=== PATIENT | female | born 1960 | race Caucasian/White ===

== ENCOUNTER 2016-05-20 16:52 | Observation (INO) ==
[2016-05-20] MEDS ORDERED: Aspirin 81 MG TAB.CHEW PO ONE (17:06)
--- NOTE | 2016-05-20 17:09 | Emergency Department Note ---
Disposition Clinical Impression: Chest pain Qualifiers: Chest pain type: unspecified Qualified Code(s): R07.9 - Chest pain, unspecified Disposition: Admitted As Inpatient Condition: Good Forms: ED Satisfaction Letter Time of Disposition: 18:14 Chest Pain HPI - General Chief Complaint: ED Chest Pain Stated Complaint: Chest pain Time Seen by Provider: 05/20/16 17:02 Source: patient Mode of arrival: ambulatory Limitations: no limitations Vital Signs Reviewed: Yes Nursing Notes Reviewed: Yes - History of Present Illness HPI Narrative: 55-year-old developed chest pain while at work she describes it across her chest heaviness and tightness into her jaw into her arm. The patient does have a history of hypertension hypercholesterolemia. Patient has a strong family history dad had an PA at 42. Patient is a nonsmoker. Patient is not a diabetic. Pt complaint: chest pain Onset (ago): Just [employer] Duration: intermittent Onset: other (While at work nonexertional job) Pain Location: left chest Severity: moderate Severity scale (1-10): 5 Quality: tightness, aching Pain Radiation: LUE, jaw/teeth Improves with: rest Worsens with: exertion Associated symptoms: Reports: diaphoresis - Related Data Allergies Allergy/AdvReac Type Severity Reaction Status Date / Time No Known Allergies Allergy Verified 05/20/16 17:09 Constitutional: Denies: fever, chills, weakness, weight change Eyes: Denies: eye pain, eye discharge, vision change ENT ED: Denies: ear pain, throat pain, dental pain, hearing loss, epistaxis, congestion, dysphagia Cardiovascular: Reports: chest pain. Denies: palpitations, dyspnea on exertion , edema, syncope Respiratory: Denies: cough, dyspnea, wheezes, hemoptysis, stridor Gastrointestinal: Denies: abdominal pain, nausea, vomiting, diarrhea, constipation, hematemesis, melena, hematochezia Genitourinary: Denies: dysuria, frequency, hematuria, discharge Musculoskeletal: Denies: back pain, neck pain, arthralgia, myalgia Integumentary: Denies: rash, abrasion, lesions Neurological: Denies: headache, weakness, numbness, paresthesias, confusion, abnormal gait, vertigo Psychiatric: Denies: anxiety, depression, suicidal thoughts, homicidal thoughts , auditory hallucinations, visual hallucinations Endocrine: Denies: fatigue Hematological/Lymphatic: Denies: easy bleeding, easy bruising Allergic/Immunologic: Denies: facial swelling, urticaria Chest Pain PMH - Past Medical History Medical history: Reports: hyperlipidemia, hypertension Psychiatric history: Reports: no psych history - Social History Smoking Status: Former smoker Alcohol use: Reports: rarely Drug use: Reports: none Physical Exam - General Limitations: no limitations General appearance: alert - Head Head exam: atraumatic, normocephalic, normal inspection - Eye Eye exam: Present: normal appearance, PERRL, EOMI - ENT ENT exam: normal exam, normal oropharynx, mucous membranes moist - Neck Neck exam: Present: normal inspection, full ROM, trachea midline - Chest Chest inspection: Present: normal inspection, symmetric chest wall rise - Respiratory Respiratory exam: Present: normal lung sounds bilaterally - Cardiovascular Cardiovascular exam: Present: regular rate, normal rhythm, normal heart sounds - Abdominal Exam Abdominal exam: Present: soft, Non-Tender. Absent: tenderness, distention, guarding, rebound, rigidity - Extremities Exam Extremities exam: Present: normal inspection, full ROM. Absent: tenderness, pedal edema - Expanded Lower Extremity Exam Neurovascular/Tendon exam: Present: normal capillary refill Gait: observed and normal - Back Exam Back exam: Present: normal inspection, full ROM. Absent: tenderness - Neurological Exam Neurological exam: Present: alert, oriented X3 - Psychiatric Psychiatric exam: Present: normal affect, normal mood - Skin Skin exam: Present: warm, dry, intact, normal color Course - Reevaluation(s) Reevaluation #1: Patient's workup here in emergency department is negative with respect to her troponin. EKG does show T-wave inversions in V1 and V2 and V3. Patient will be admitted for further evaluation. Time: 18:05 - Consultations Consultation #1: Discussed with Dr. Caldera, admit. Time: 18:14 Vital Signs Temperature 97.9 F 05/20/16 16:56 Pulse Rate 111 05/20/16 16:56 Respiratory Rate 22 05/20/16 16:56 Blood Pressure 191/99 05/20/16 16:56 O2 Sat by Pulse Oximetry 92 L 05/20/16 16:56 Temperature 97.9 F 05/20/16 16:56 Pulse Rate 86 05/20/16 18:11 Respiratory Rate 16 05/20/16 18:11 Blood Pressure 132/69 05/20/16 18:11 O2 Sat by Pulse Oximetry 98 02/04/17 18:11 Oxygen Delivery Oxygen Delivery Room Air Chest Pain - Lab Data Result diagrams: 05/20/16 17:32 05/20/16 17:32 Lab Results 05/20/16 05/20/16 05/20/16 Range/Units 17:32 17:32 17:32 WBC 5.4 (4.3-11.1) K/mcL RBC 3.99 (3.82-4.97) M/mcL Hgb 12.7 (11.5-15.4) g/dL Hct 37.8 (35.3-44.9) % MCV 94.7 (83.0-100.0) fL MCH 31.8 (28.0-33.3) pg MCHC 33.6 (31.6-35.5) g/dL RDW 12.8 (11.5-14.5) % Plt Count 203 (140-400) K/mcL MPV 11.0 (9.4-12.4) fL Immature Gran % 0.2 (0-4) % Seg Neutrophils % 65.0 % Lymphocytes % 24.5 % Monocytes % 8.1 % Eosinophils % 1.8 % Basophils % 0.4 % Neutrophils # 3.5 (1.6-8.9) K/mcL Lymphocytes # 1.3 (0.6-4.6) K/mcL Monocytes # 0.4 (0.0-1.3) K/mcL Eosinophils # 0.1 (0.0-0.6) K/mcL Basophils # 0.0 (0.0-0.2) K/mcL PT 11.4 (9.4-12.1) Seconds INR 1.1 APTT 29.8 (26.0-36.0) Seconds Sodium (136-145) mEq/L Potassium (3.5-4.5) mEq/L Chloride (98-109) mEq/L Carbon Dioxide (19-29) mEq/L BUN (7-20) mg/dL Creatinine (0.57-1.11) mg/dL Est GFR ( Amer) (> 60) Est GFR (Non-Af Amer) (> 60) BUN/Creatinine Ratio (6-26) Glucose (70-99) mg/dL Calculated Osmolality (280-300) Calcium (8.6-10.8) mg/dL Troponin I (0-0.03) ng/mL B-Natriuretic Peptide 20 (0-100) pg/mL 05/20/16 05/20/16 Range/Units 17:32 17:32 WBC (4.3-11.1) K/mcL RBC (3.82-4.97) M/mcL Hgb (11.5-15.4) g/dL Hct (35.3-44.9) % MCV (83.0-100.0) fL MCH (28.0-33.3) pg MCHC (31.6-35.5) g/dL RDW (11.5-14.5) % Plt Count (140-400) K/mcL MPV (9.4-12.4) fL Immature Gran % (0-4) % Seg Neutrophils % % Lymphocytes % % Monocytes % % Eosinophils % % Basophils % % Neutrophils # (1.6-8.9) K/mcL Lymphocytes # (0.6-4.6) K/mcL Monocytes # (0.0-1.3) K/mcL Eosinophils # (0.0-0.6) K/mcL Basophils # (0.0-0.2) K/mcL PT (9.4-12.1) Seconds INR APTT (26.0-36.0) Seconds Sodium 139 (136-145) mEq/L Potassium 3.6 (3.5-4.5) mEq/L Chloride 102 (98-109) mEq/L Carbon Dioxide 26 (19-29) mEq/L BUN 19 (7-20) mg/dL Creatinine 1.10 (0.57-1.11) mg/dL Est GFR ( Amer) > 60 (> 60) Est GFR (Non-Af Amer) 51 L (> 60) BUN/Creatinine Ratio 17 (6-26) Glucose 87 (70-99) mg/dL Calculated Osmolality 290 (280-300) Calcium 9.4 (8.6-10.8) mg/dL Troponin I 0.00 (0-0.03) ng/mL B-Natriuretic Peptide (0-100) pg/mL - EKG Data EKG attestation: Yes I reviewed and interpreted this EKG. EKG shows normal: sinus rhythm Rate: normal Rhythm: NSR T wave inversions noted in: v1, v2, v3 When compared to previous EKG there are: previous EKG unavailable Interpretation: other (T-wave inversion no old EKG.) Heart Score - Score History: Moderately Suspicious EKG: Non Specific repolarisation Disturbance Age: 45-65 Risk Factors: Equal/Greater than 3 risk factor or history of atherosclerotic disease Troponin: Less than normal limit HEART Score Total: 5
[2016-05-20 17:45] LABS: Basophils % 0.4 %; Eosinophils # 0.1 K/mcL (0.0-0.6); Eosinophils % 1.8 %; Hematocrit 37.8 % (35.3-44.9); Hemoglobin 12.7 g/dL (11.5-15.4); Immature Granulocytes % 0.2 % (0-4); Lymphocytes # 1.3 K/mcL (0.6-4.6); Lymphocytes % 24.5 %; Mean Corpuscular HGB Conc 33.6 g/dL (31.6-35.5); Mean Corpuscular Hemoglobin 31.8 pg (28.0-33.3); Mean Corpuscular Volume 94.7 fL (83.0-100.0); Monocytes # 0.4 K/mcL (0.0-1.3); Monocytes % 8.1 %; Neutrophils # 3.5 K/mcL (1.6-8.9); Platelet Count 203 K/mcL (140-400); Red Blood Count 3.99 M/mcL (3.82-4.97); Red Cell Distribution Width 12.8 % (11.5-14.5)
[2016-05-20 17:49] LABS: INR 1.1; Prothrombin Time 11.4 Seconds (9.4-12.1)
[2016-05-20 17:52] LABS: Activated Partial Thrombo Time 29.8 Seconds (26.0-36.0)
[2016-05-20 17:57] LABS: BUN/Creatinine Ratio 17 (6-26); Blood Urea Nitrogen 19 mg/dL (7-20); Calcium 9.4 mg/dL (8.6-10.8); Carbon Dioxide 26 mEq/L (19-29); Chloride 102 mEq/L (98-109); Glucose 87 mg/dL (70-99); Osmolality,Calculated 290 (280-300); Potassium 3.6 mEq/L (3.5-4.5); Sodium 139 mEq/L (136-145); eGFR For African Americans > 60 (> 60); eGFR For Non-African Americans 51 (> 60)
[2016-05-20] MEDS ORDERED: Naloxone 0.4 MG/ML INJ IVP PRN (18:57)
[2016-05-20] MEDS ORDERED: Acetaminophen 325 MG TABLET PO PRN (18:57)
[2016-05-20] MEDS ORDERED: Ondansetron 4 MG/2 ML VIAL IVP PRN (18:57)
[2016-05-20] MEDS ORDERED: ATORVASTATIN 20 MG PO SCH (19:00)
[2016-05-20] MEDS ORDERED: Nitroglycerin 0.4 MG TAB.SUBL SL PRN (19:00)
--- NOTE | 2016-05-20 19:10 | Internal Med History&Physical ---
Date of Encounter: 05/20/16 Time of Encounter: 18:30 Assessment and Plan (1) Chest pain Current visit: Yes Status: Acute -Given clinical presentation of the chest pain along with strong family history , will admit to rule out ACS -Cardiology consulted (Dr. You) who will see the patient in the morning and determine if the patient needs a stress test vs C -NPO after midnight for cardiac testing in the morning -continue to monitor serial TNI and EKG -ASA, Statin -Nitroglycerin prn chest pain, currently chest pain free -monitor O2 saturation -O2 supplementation as needed Qualifiers: Chest pain type: precordial pain Qualified Code(s): R07.2 - Precordial pain (2) Hypertension Current visit: Yes Status: Chronic BP within acceptable range continue home medications Qualifiers: Hypertension type: essential hypertension Qualified Code(s): I10 - Essential (primary) hypertension (3) Hyperlipidemia Current visit: Yes Status: Chronic -follow up lipid panel -continue lipitor (increased lipitor to 80mg PO qHS), adjust dosing prior to discharge Qualifiers: Hyperlipidemia type: unspecified Qualified Code(s): E78.5 - Hyperlipidemia , unspecified (4) DVT prophylaxis Current visit: Yes Status: Acute Heparin SQ Internal Medicine - H&P: HPI Chief complaint: chest pain Admitted From: Home Plans for Post Hospital Care: Home History of present illness: Ms. Lee is a 55 year old female with past medical history of hypertension, hyperlipidemia who presents today here for evaluation of chest pain. Patient states she woke up this morning with left-sided chest pain radiating to her left arm and neck. She describes the pain as pressure-like, initially started with mid sternum radiating to left chest wall neck and left arm. She reports of a strong family history of cardiac disease including her father having his first GA in his 40s. Upon arrival to the ER patient's chest pain was completely resolved. She received aspirin 324 mg in the ER. At this time she is resting comfortably in bed, denies any chest pain, dizziness, lightheadedness , palpitations, shortness of breath, abdominal pain, nausea, vomiting, fever, or chills. She is also noted to have Twave inversions on her EKG in V1, V2, V3, however no prior EKG is available for comparison. Social Hx: Former smoker FMH: Mother: CHF, Father: CAD, Multiple GA-starting at the age 42, Code status: Full Code Past Med Surg Social Fam HX - Past Medical History Medical history: hyperlipidemia, hypertension Psychiatric history: no psych history - Social History Smoking Status: Former smoker Smokeless Tobacco Status: No Alcohol use: rarely Drug use: none Internal Medicine - H&P: Meds Atorvastatin 20 mg PO DAILY 05/20/16 [History] CloNIDine HCl [Clonidine HCl] 0.5 tab PO HS 05/20/16 [History] Losartan/Hydrochlorothiazide mg PO DAILY 05/20/16 [History] PriLOSEC 20 mg PO DAILY 05/20/16 [History] Valacyclovir 500 mg PO DAILY 05/20/16 [History] Allergies No Known Allergies Allergy (Verified 05/20/16 17:09) All Systems PM: A 10-system review of systems was performed and is negative for pertinent findings except as documented above in the HPI. - Constitutional Constitutional: as per HPI - Constitutional Vitals: Temp Pulse Resp BP Pulse Ox 97.9 F 86 16 132/69 98 05/20/16 16:56 05/20/16 18:11 05/20/16 18:31 05/20/16 18:31 05/20/16 18:11 General appearance: Present: A&O X 3, pleasant, no acute distress, answers questions appropriately - Head Head exam: Present: atraumatic, normocephalic - Eye Eye exam: Present: normal appearance, conjuntiva pink, sclera anicteric - Respiratory Respiratory exam: Present: CTAB. Absent: respiratory distress, wheezes - Cardiovascular Cardiovascular exam: Present: RRR, +S1, +S2 - GI/Abdominal GI/Abdominal exam: Present: normal bowel sounds, soft. Absent: distended, tenderness - Extremities Exam Extremities exam: Present: warm, radial pulses palpable and symetrical. Absent : calf tenderness, pedal edema, tenderness - Neurological Exam Neurological exam: Present: alert, oriented X3, no focal deficits - Psychiatric Psychiatric exam: Present: normal affect, normal mood Internal Med - H&P Results - Labs CBC & Chem 7: 05/20/16 17:32 05/20/16 17:32
[2016-05-20] MEDS ORDERED: valACYclovir 500 MG TABLET PO SCH (21:00)
[2016-05-20] MEDS ORDERED: cloNIDine HCl 0.1 MG TABLET PO SCH ×2 (21:00)
[2016-05-20] MEDS ORDERED: Losartan/HCTZ 50-12.5 TABLET PO SCH (21:00)
[2016-05-20] MEDS: *HR* Heparin 5,000 UNIT/ML VIAL SQ SCH (21:29)
[2016-05-21 00:35] LABS: Basophils % 0.6 %; Eosinophils # 0.2 K/mcL (0.0-0.6); Eosinophils % 3.9 %; Hematocrit 35.4 % (35.3-44.9); Immature Granulocytes % 0.2 % (0-4); Lymphocytes # 1.6 K/mcL (0.6-4.6); Lymphocytes % 35.3 %; Mean Corpuscular HGB Conc 33.9 g/dL (31.6-35.5); Mean Corpuscular Hemoglobin 32.3 pg (28.0-33.3); Mean Corpuscular Volume 95.2 fL (83.0-100.0); Mean Platelet Volume 10.8 fL (9.4-12.4); Monocytes # 0.4 K/mcL (0.0-1.3); Monocytes % 9.5 %; Neutrophils # 2.4 K/mcL (1.6-8.9); Platelet Count 197 K/mcL (140-400); Red Blood Count 3.72 M/mcL (3.82-4.97); Red Cell Distribution Width 12.9 % (11.5-14.5); Segmented Neutrophils % 50.5 %
[2016-05-21 00:52] LABS: BUN/Creatinine Ratio 17 (6-26); Blood Urea Nitrogen 18 mg/dL (7-20); Calcium 8.8 mg/dL (8.6-10.8); Carbon Dioxide 25 mEq/L (19-29); Chloride 103 mEq/L (98-109); Chol/HDL Ratio 2.1 (0-4.9); Cholesterol 126 mg/dL (< 200); Glucose 120 mg/dL (70-99); HDL Cholesterol 59 mg/dL (40-59); LDL Cholesterol,Calculated 52 mg/dL (0-99); Magnesium 2.2 mg/dL (1.6-2.6); Osmolality,Calculated 289 (280-300); Phosphorous 3.6 mg/dL (2.3-4.7); Potassium 3.5 mEq/L (3.5-4.5); Sodium 138 mEq/L (136-145); Triglycerides 73 mg/dL (< 150); eGFR For African Americans > 60 (> 60); eGFR For Non-African Americans 52 (> 60)
[2016-05-21] MEDS: *HR* Heparin 5,000 UNIT/ML VIAL SQ SCH (06:27)
[2016-05-21] MEDS ORDERED: valACYclovir 500 MG TABLET PO SCH (09:00)
--- NOTE | 2016-05-21 10:06 | Cardiology Consult Note ---
Date of Encounter: 05/21/16 Time of Encounter: 09:30 Assessment and Plan Discussion w patient/family: The assessment and plan as outlined above was discussed with the patient and/or family members who expressed understanding and agreement. All questions were answered. Thank you for involving us in the care of your patient. Please call with any questions. Chest appears to atypical EKG reviewed by me shows T wave inversion in V1 V2 , no previous to compare to Cardiac enzymes were neg plan; Stress test today if negative no further eval necessary check lipids Thanks! History of Present Illness Chief complaint: Chest pain History of present illness: Ms. Lee is a 55 year old female with no past cardiac history , but a history of HTN who comes in with CP left sided, ? radiating to left arm, a/w with some diaphresis , was sitting when it happened . Pt is presently CP free, no associated sob, palpitations Past Med Surg Social Fam HX - Past Medical History Medical history: hyperlipidemia, hypertension Psychiatric history: no psych history - Social History Smoking Status: Former smoker Smokeless Tobacco Status: No Alcohol use: rarely Drug use: none - Family History Mother Living Status: Hx Family Cardiac Disorders: Yes (CHF) Father Hx Family Cardiac Disorders: Yes (VT IN 40'S) Medications and Allergies Atorvastatin Calcium [Lipitor] 20 mg PO DAILY 05/20/16 [History] CloNIDine HCl [Clonidine HCl] 0.15 tab PO HS 05/20/16 [History] Losartan/Hydrochlorothiazide [Hyzaar 100-25 Tablet] 1 each PO DAILY 05/20/16 [ History] Omeprazole [PriLOSEC] 20 mg PO BID 05/20/16 [History] Valacyclovir [Valtrex] 500 mg PO DAILY 05/20/16 [History] Allergies No Known Allergies Allergy (Verified 05/20/16 17:09) All Systems Review: A 10-system review of systems was performed and is negative for pertinent findings except as documented above in the HPI. Physical Examination Vital Signs, Last 4 Hours Temp Pulse Resp BP Pulse Ox 05/21/16 06:57 97.8 F 57 14 101/61 95 General: Conversant HEENT: Atraumatic Neck: No JVD Results 05/21/16 00:12 05/21/16 00:12 Lab Results 05/21/16 05/21/16 05/21/16 00:12 00:12 00:12 WBC 4.7 Hgb 12.0 Hct 35.4 Plt Count 197 Sodium 138 Potassium 3.5 Chloride 103 Carbon Dioxide 25 BUN 18 Creatinine 1.08 Glucose 120 H Calcium 8.8 Magnesium 2.2 Troponin I 0.01 05/21/16 06:13 WBC Hgb Hct Plt Count Sodium Potassium Chloride Carbon Dioxide BUN Creatinine Glucose Calcium Magnesium Troponin I 0.00 Consult Discharge Plan - Plan Referrals: Hannah José TRACK MOVING MACHINE OPERATOR [Primary Care Provider] -
[2016-05-21 11:18] VITALS: BP 120/80
--- NOTE | 2016-05-21 11:41 | Nuclear Medicine Stress Report ---
Exercise Nuclear Stress Name: Julita Lee Date of Study: 05/21/2016 Date: 1960 Ht: 64.0 in Medical Record#: [id number] Age: 55 Wt: 140.0 lb Gender: Female Order #: [id number] Location: [facility] Room: [facility] Supervising Provider: Luis Carlos Zhong CNP Reading Physician: Joe Jeffrey DO, FACC, COOKIE, ARNOLD Ordering Physician: Luis Carlos Zhong CNP Primary Care Physician: Hannah José CNP Stress Technologist: Rosalinda Chadwick, WAITER/WAITRESS [employer]GE, CCT, CPFT Byproduct Engineer: Brodie Hall Indications: Chest pain Impression: Exercise ECG is negative for ischemia. The exercise capacity was excellent (12.8 METs). No chest pain reported. Gated EF = 77%. Perfusion imaging was negative for ischemia or infarct. History: Hypertension Hypercholesteremia Stress Test Summary: Stress Test Type: Treadmill Protocol: Dennis Baseline Information: Initial Heart Rate: 74 Blood Pressure: 112/62 Stress Information: Stress Time: 10 min 00 sec Test Terminated Due to (primary): Fatigue Maximum Blood Pressure: 142/70 Maximum Heart Rate: 169 Percent Maximum Heart Rate Achieved: 103 Double Product: [id number] METS Reached: 12.8 Symptoms: Fatigue Nuclear Summary: SPECT myocardial perfusion imaging using Tc99m Sestamibi given intravenously was performed at rest and following cardiac stress testing. The resting images were obtained following initial dose of 9.1 mCi. Following stress an additional dose of 29.5 mCi was given at peak exercise or 30 seconds post regadenoson infusion. Medication Given: Time Medication Dose Units Route Findings: Stress Note * Resting ECG demonstrated normal sinus rhythm, incomplete RBBB. * No baseline arrhythmias were noted. * Exercise ECG is negative for ischemia. * No arrhythmias were noted during stress. * The exercise capacity was excellent. * Patient had no chest pain during stress. * Normal hemodynamic responses to exercise. Study Quality * Study quality is good. Gated EF % * Gated EF = 77%. Left Ventricle * The left ventricle is not dilated. LVEDV = 69 mL. NORMALS * Normal wall motion. * Normal segmental perfusion in rest. * Normal segmental perfusion in stress. TID * No evidence of transient ischemic dilatation. TID ratio = 1.00. Lung Uptake * There is no evidence of increase lung uptake. Updated by Joe Jeffrey DO, TAVARES, COOKIE, ARNOLD on 05/21/2016 11:35:27 AM electronically signed on 05/21/2016 11:38:16 AM with status of Final
--- NOTE | 2016-05-21 11:47 | Internal Med Progress Note ---
Date of Encounter: 05/21/16 Time of Encounter: 11:45 - Assessment and plan (1) Chest pain Current Visit: Yes Status: Acute Assessment and plan: Chest pain and evaluation. Will undergo a stress test today. We will reevaluate afterwards. If negative, possible discharge home in the evening. Qualifiers: Chest pain type: precordial pain Qualified Code(s): R07.2 - Precordial pain (2) DVT prophylaxis Current Visit: Yes Status: Acute - Time Spent With Patient 25 - 35 minutes - Subjective Interval history: Patient seen and examined. She denies chest pain. She will undergo a stress test today. We will reevaluate afterwards. - Constitutional Vitals: Temp Pulse Resp BP Pulse Ox 98.2 F 90 14 120/80 96 05/21/16 11:16 05/21/16 11:16 05/21/16 11:16 05/21/16 11:16 05/21/16 11:16 General appearance: Present: A&O X 3, pleasant, no acute distress, answers questions appropriately - Head Head exam: Present: atraumatic, normocephalic - Eye Eye exam: Present: PERRL, conjuntiva pink, sclera anicteric Pupils: Present: PERRL - Neck Neck exam general surgery: Present: supple, trachea midline. Absent: lymphadenopathy - Respiratory Respiratory exam: Present: CTAB. Absent: accessory muscle use, rales, rhonchi, wheezes - Cardiovascular Cardiovascular exam: Present: RRR, +S1, +S2. Absent: diastolic murmur, gallop, rubs, systolic murmur - GI/Abdominal GI/Abdominal exam: Present: normal bowel sounds, soft, no peritoneal signs. Absent: distended, tenderness - Extremities Exam Extremities exam: Present: warm, radial pulses palpable and symetrical. Absent : calf tenderness, cyanotic, pedal edema - Neurological Exam Neurological exam: Present: CN II-XII intact, oriented X3, no focal deficits. Absent: pronater drift, facial droop, speech deficit - Skin Skin exam: Present: dry, intact Internal Medicine: Result - Labs CBC & Chem 7: 05/21/16 00:12 05/21/16 00:12 Labs: Short CBC 05/21/16 Range/Units 00:12 WBC 4.7 (4.3-11.1) K/mcL Hgb 12.0 (11.5-15.4) g/dL Hct 35.4 (35.3-44.9) % Plt Count 197 (140-400) K/mcL Neutrophils # 2.4 (1.6-8.9) K/mcL BMP 05/21/16 00:12 Sodium 138 Potassium 3.5 Chloride 103 Carbon Dioxide 25 BUN 18 Creatinine 1.08 Glucose 120 H Calcium 8.8 Cardiac Enzymes 05/21/16 05/21/16 Range/Units 00:12 06:13 Troponin I 0.01 0.00 (0-0.03) ng/mL - ABG Interpretation ABG results: PT/INR, D-dimer PT 11.4 Seconds (9.4-12.1) 05/20/16 17:32 Consult Discharge Plan - Plan Referrals: Hannah José, MEDICINE AIDE [Primary Care Provider] -
--- NOTE | 2016-05-21 12:26 | Event Note ---
Date of Encounter: 05/21/16 Time of Encounter: 12:25 - Cardiology Event Note Stress test resulted--Gated EF 77%, perfusion imaging negative for ischemia or infarct. No further cardiac testing indicated. Cardiology is signing off. Reconsult PRN.
--- NOTE | 2016-05-21 13:10 | Discharge Summary ---
Date of Encounter: 05/21/16 Time of Encounter: 13:08 - Discharge Diagnosis (1) Chest pain Priority: Primary Status: Acute Qualifiers: Chest pain type: precordial pain Qualified Code(s): R07.2 - Precordial pain (2) DVT prophylaxis Priority: Secondary Status: Acute - Discharge Medications Home Medications: Atorvastatin Calcium [Lipitor] 20 mg PO DAILY 05/20/16 [History] CloNIDine HCl [Clonidine HCl] 0.15 tab PO HS 05/20/16 [History] Omeprazole [PriLOSEC] 20 mg PO BID 05/20/16 [History] Valacyclovir [Valtrex] 500 mg PO DAILY 05/20/16 [History] Hydrochlorothiazide 25 mg PO DAILY 05/21/16 [History] Losartan Potassium 100 mg PO DAILY 05/21/16 [History] Allergies/Adverse Reactions: Allergies No Known Allergies Allergy (Verified 05/20/16 17:09) Procedures/tests Complete & Pending: Procedures Performed prior 72 hours Category Date Time Status NM garry perf SPECT multi [NM] Routine Exams 05/21/16 09:08 Taken SP exercise nuclear stress Routine Y 05/21/16 09:06 Completed Date of admission: 05/20/16 18:24 Primary care physician: Hannah José CNP Consults: 05/20/16 19:15 Consult to Cardiology [CONS] Routine Comment: Consulting Provider: Cardiology Jazmín Reason for Consult: chest pain concern for ACS Call Completed: Yes Discharging clinician: Demar Cortes Anticipated date of discharge: 05/21/16 - Patient Status Disposition: Home, Self-Care Condition: Good Functional capacity at discharge: independent ambulation Overall status at discharge: patient is back to baseline - Discharge Instructions Instructions: Chest Pain (DC), Chronic Hypertension (DC) Follow Up With: Hannah José CNP [Primary Care Provider] - - Diet and Activity Diet: advance to your usual diet Interval History: Ms. Lee is a 55 year old female with past medical history of hypertension, hyperlipidemia who presents today here for evaluation of chest pain. Patient states she woke up this morning with left-sided chest pain radiating to her left arm and neck. She describes the pain as pressure-like, initially started with mid sternum radiating to left chest wall neck and left arm. She reports of a strong family history of cardiac disease including her father having his first SD in his 40s. Upon arrival to the ER patient's chest pain was completely resolved. She received aspirin 324 mg in the ER. At this time she is resting comfortably in bed, denies any chest pain, dizziness, lightheadedness , palpitations, shortness of breath, abdominal pain, nausea, vomiting, fever, or chills. She is also noted to have Twave inversions on her EKG in V1, V2, V3, however no prior EKG is available for comparison. Social Hx: Former smoker FMH: Mother: CHF, Father: CAD, Multiple SD-starting at the age 42, Code status: Full Code Hospital course: Ms. Lee is a 55 year old female admitted due to chest pain. Stress test negative. Will discharge her home today. She will follow up as outpatient with her PCP. D/W patient. - Time Spent with Patient Total time spent providing and/or coordinating discharge services: Greater than 30 minutes - Constitutional Vitals: Temp Pulse Resp BP Pulse Ox 98.2 F 90 14 120/80 96 05/21/16 11:16 05/21/16 11:16 05/21/16 11:16 05/21/16 11:16 05/21/16 11:16 General appearance: Present: A&O X 3, pleasant, no acute distress, answers questions appropriately - Head Head exam: Present: atraumatic, normocephalic - Eye Eye exam: Present: PERRL, conjuntiva pink, sclera anicteric Pupils: Present: PERRL - Neck Neck exam general surgery: Present: supple, trachea midline. Absent: lymphadenopathy - Respiratory Respiratory exam: Present: CTAB. Absent: accessory muscle use, rales, rhonchi, wheezes - Cardiovascular Cardiovascular exam: Present: RRR, +S1, +S2. Absent: diastolic murmur, gallop, rubs, systolic murmur - GI/Abdominal GI/Abdominal exam: Present: normal bowel sounds, soft, no peritoneal signs. Absent: distended, tenderness - Extremities Exam Extremities exam: Present: warm, radial pulses palpable and symetrical. Absent : calf tenderness, cyanotic, pedal edema - Neurological Exam Neurological exam: Present: CN II-XII intact, oriented X3, no focal deficits. Absent: pronater drift, facial droop, speech deficit - Skin Skin exam: Present: dry, intact
--- NOTE | 2016-05-22 17:30 | Electrocardiograph Report ---
[address] [place], [place] [address] Test Date: 2016-05-20 Pat Name: Julita Lee Department: 103 Room: 3B16 Gender: F Lifestyle Director: : 1960 Requested By: Roverto Javier Order Number: [id number] Reading MD: Anh Solano Measurements Intervals [place] Rate: 91 P: 69 NC: 155 QRS: 17 QRSD: 88 T: 35 QT: 349 QTc: 397 Interpretive Statements SINUS RHYTHM MODERATE T-WAVE ABNORMALITY, CONSIDER ANTERIOR ISCHEMIA Electronically Signed On 05-22-2016 17:29:01 EST by Anh Solano
== END 2016-05-21 13:17 | disposition home or self-care (01) ==
LOC: EMEROO 16:52 → 3BNU 16:52
PROVIDERS: ADMIT Internal Medicine; ATTEND Internal Medicine

== ENCOUNTER 2021-02-06 16:28 | Observation (INO) ==
[2021-02-06 16:57] LABS: Basophils % 0.5 %; Eosinophils # 0.1 K/mcL (0.0-0.6); Eosinophils % 1.9 %; Hematocrit 45.2 % (35.3-44.9); Hemoglobin 15.4 g/dL (11.5-15.4); Immature Granulocytes % 0.2 % (0-4); Lymphocytes # 1.9 K/mcL (0.6-4.6); Lymphocytes % 30.2 %; Mean Corpuscular HGB Conc 34.1 g/dL (31.6-35.5); Mean Corpuscular Hemoglobin 32.2 pg (28.0-33.3); Mean Corpuscular Volume 94.6 fL (83.0-100.0); Mean Platelet Volume 10.4 fL (9.4-12.4); Monocytes # 0.5 K/mcL (0.0-1.3); Monocytes % 7.2 %; Neutrophils # 3.9 K/mcL (1.6-8.9); Platelet Count 279 K/mcL (140-400); Red Blood Count 4.78 M/mcL (3.82-4.97); Red Cell Distribution Width 12.9 % (11.5-14.5); White Blood Count 6.4 K/mcL (4.3-11.1)
[2021-02-06 17:05] LABS: Prothrombin Time 11.5 Seconds (9.4-12.1)
[2021-02-06] MEDS ORDERED: Aspirin 325 MG TABLET PO ONE (17:05)
[2021-02-06 17:07] LABS: Activated Partial Thrombo Time 31.6 Seconds (26.0-36.0)
[2021-02-06] MEDS ORDERED: Aspirin 81 MG TAB.CHEW PO ONE (17:10)
[2021-02-06 17:14] LABS: BUN/Creatinine Ratio 12 (6-26); Blood Urea Nitrogen 12 mg/dL (8-23); Calcium 9.5 mg/dL (8.6-10.3); Carbon Dioxide 25 mEq/L (23-29); Chloride 103 mEq/L (98-107); Glucose 90 mg/dL (70-105); Osmolality,Calculated 285 (280-300); Potassium 3.8 mEq/L (3.5-5.1); Sodium 138 mEq/L (136-145); Troponin I < 0.03 ng/mL (< 0.04); eGFR For African Americans > 60 (> 60); eGFR For Non-African Americans 54 (> 60)
[2021-02-06 17:36] LABS: Alanine Aminotransferase 12 Units/L (7-52); Albumin 4.9 g/dL (3.5-5.7); Alkaline Phosphatase 90 Units/L (34-104); Aspartate Amino Transferase 17 Units/L (13-39); Bilirubin,Direct 0.1 mg/dL (0.0-0.2); Bilirubin,Indirect 0.5 mg/dL (0.0-1.0); Bilirubin,Total 0.6 mg/dL (0.3-1.0); Globulin 2.5 g/dL (2.4-3.5); Lipase 53 Units/L (11-82); Total Protein 7.4 g/dL (6.4-8.9)
[2021-02-06 17:47] LABS: D-Dimer < 215 ng/mLFEU (0-500)
[2021-02-06] MEDS: Nitroglycerin 0.4 MG TAB.SUBL SL PRN (17:59)
[2021-02-06] MEDS ORDERED: Perflutren Lipid Microsphere 1.3 ML in 0.9 % Sodium Chloride 8.7 ML IVP PRN (20:05)
[2021-02-06] MEDS ORDERED: Morphine Sulfate 2 MG/ML SYRINGE IVP PRN (20:07)
[2021-02-06 20:59] LABS: Bilirubin,Urine Negative (Negative); Blood,Urine Negative (Negative); Clarity,Urine Clear (Clear); Color,Urine Colorless (Yellow); Glucose,Urine (UA) Normal (Normal); Ketones,Urine Negative (Negative); Leukocyte Esterase,Urine Negative (Negative); Nitrite,Urine Negative (Negative); PH,Urine 6.5 pH Units (5.0-8.0); Protein,Urine Negative (Neg-Trace); Specific Gravity,Urine 1.008 (1.010-1.025); Urobilinogen,Urine Normal (Normal)
[2021-02-06] MEDS ORDERED: hydrALAZINE 10 MG TABLET PO PRN (21:01)
[2021-02-06] MEDS ORDERED: Acetaminophen 325 MG TABLET PO PRN (21:05)
[2021-02-06] MEDS ORDERED: Naloxone 0.4 MG/ML INJ IVP PRN (21:05)
[2021-02-06] MEDS ORDERED: Ondansetron 4 MG/2 ML VIAL IVP PRN (21:05)
[2021-02-07 06:31] LABS: Hematocrit 40.5 % (35.3-44.9); Mean Corpuscular HGB Conc 33.6 g/dL (31.6-35.5); Mean Corpuscular Hemoglobin 32.3 pg (28.0-33.3); Mean Corpuscular Volume 96.2 fL (83.0-100.0); Mean Platelet Volume 10.2 fL (9.4-12.4); Platelet Count 220 K/mcL (140-400); Red Blood Count 4.21 M/mcL (3.82-4.97); Red Cell Distribution Width 13.1 % (11.5-14.5); White Blood Count 4.5 K/mcL (4.3-11.1)
[2021-02-07 06:37] LABS: Hemoglobin 13.6 g/dL (11.5-15.4)
[2021-02-07 06:40] LABS: INR 1.1; Prothrombin Time 11.8 Seconds (9.4-12.1)
[2021-02-07 06:43] LABS: Activated Partial Thrombo Time 29.4 Seconds (26.0-36.0)
[2021-02-07 06:50] LABS: BUN/Creatinine Ratio 13 (6-26); Blood Urea Nitrogen 14 mg/dL (8-23); Calcium 8.9 mg/dL (8.6-10.3); Carbon Dioxide 27 mEq/L (23-29); Chloride 107 mEq/L (98-107); Chol/HDL Ratio 2.8 (0-4.9); Cholesterol 207 mg/dL (< 200); Glucose 90 mg/dL (70-105); HDL Cholesterol 75 mg/dL (40-59); LDL Cholesterol,Calculated 113 mg/dL (< 100); Magnesium 2.2 mg/dL (1.6-2.6); Osmolality,Calculated 286 (280-300); Potassium 4.2 mEq/L (3.5-5.1); Sodium 138 mEq/L (136-145); Triglycerides 95 mg/dL (< 150); eGFR For African Americans > 60 (> 60); eGFR For Non-African Americans 53 (> 60)
[2021-02-07 08:17] LABS: Estimated Average Glucose 108 mg/dl; Hemoglobin A1C 5.4 %
[2021-02-07] MEDS: hydroCHLOROthiazide 25 MG TABLET PO SCH (09:35)
[2021-02-07] MEDS: Aspirin Enteric Coated 81 MG Tablet PO SCH (09:35)
[2021-02-07] MEDS: Nitroglycerin 0.4 MG TAB.SUBL SL PRN ×3 (11:39→16:18)
[2021-02-07] MEDS: valACYclovir 500 MG TABLET PO SCH (13:07)
[2021-02-07] MEDS: carvediloL 6.25 MG TABLET PO SCH (16:18)
[2021-02-07] MEDS ORDERED: cloNIDine HCL 0.1 MG TABLET PO SCH (21:00)
[2021-02-08 02:55] LABS: Hematocrit 39.6 % (35.3-44.9); Hemoglobin 13.7 g/dL (11.5-15.4); Mean Corpuscular HGB Conc 34.6 g/dL (31.6-35.5); Mean Corpuscular Hemoglobin 32.7 pg (28.0-33.3); Mean Corpuscular Volume 94.5 fL (83.0-100.0); Mean Platelet Volume 10.4 fL (9.4-12.4); Platelet Count 215 K/mcL (140-400); Red Blood Count 4.19 M/mcL (3.82-4.97); Red Cell Distribution Width 12.7 % (11.5-14.5); White Blood Count 4.8 K/mcL (4.3-11.1)
[2021-02-08] MEDS: Nitroglycerin 0.4 MG TAB.SUBL SL PRN ×2 (03:16→03:21)
[2021-02-08 03:20] LABS: BUN/Creatinine Ratio 14 (6-26); Blood Urea Nitrogen 16 mg/dL (8-23); Calcium 9.1 mg/dL (8.6-10.3); Carbon Dioxide 27 mEq/L (23-29); Chloride 103 mEq/L (98-107); Glucose 103 mg/dL (70-105); Osmolality,Calculated 285 (280-300); Potassium 3.7 mEq/L (3.5-5.1); Sodium 137 mEq/L (136-145); eGFR For African Americans > 60 (> 60); eGFR For Non-African Americans 50 (> 60)
[2021-02-08] MEDS: carvediloL 6.25 MG TABLET PO SCH (08:46)
[2021-02-08] MEDS: hydroCHLOROthiazide 25 MG TABLET PO SCH (08:47)
[2021-02-08] MEDS: valACYclovir 500 MG TABLET PO SCH (08:47)
[2021-02-08] MEDS: Aspirin Enteric Coated 81 MG Tablet PO SCH (08:47)
[2021-02-08 10:58] VITALS: TEMP 98.3
[2021-02-08] MEDS ORDERED: *HR* FentaNYL (PF) 100 MCG/2 ML VIAL ONE (12:20)
[2021-02-08] MEDS ORDERED: *HR* Midazolam HCl 2 MG/2 ML VIAL ONE ×2 (12:20→13:48)
[2021-02-08] MEDS ORDERED: 0.9 % Sodium Chloride 1,000 ML ONE (12:21)
[2021-02-08] MEDS ORDERED: Heparin 1,000 UNITS/500 mL 500 ML ONE (12:21)
[2021-02-08] MEDS ORDERED: Nitroglycerin 1,000 MCG/5 ML VIAL IV ONE (12:21)
[2021-02-08] MEDS ORDERED: ISOVUE-370 200 ML INFUS..BTL ONE (12:21)
[2021-02-08] MEDS ORDERED: *HR* Heparin 10,000 UNIT/10 ML VIAL ONE (12:21)
[2021-02-08 17:54] VITALS: BP 118/70; PULSE 76; O2SAT 99
== END 2021-02-08 17:44 | disposition home or self-care (01) ==
LOC: 3BNU 16:28 → EMEROOARM 16:28 → SUATTDRO 18:26 → 3BNU 20:20
PROVIDERS: ADMIT Family Medicine; ATTEND Internal Medicine